=== PATIENT | female | born 1940 | race Caucasian/White ===

== ENCOUNTER → 2016-04-13 | Outpatient (CLI) | payer MEDICARE, OTHER ==
[2016-04-13 10:32] LABS: HEMATOCRIT 40.3 % (35.0-46.0); MEAN CELL VOLUME 100.2 FL (80.0-100.0); MEAN CORPUSCULAR HEMOGLOBIN 33.8 PG (27.0-34.0); MEAN CORPUSCULAR HGB CONC 33.7 % (32.0-36.0); PLATELET COUNT 234 TH/MM3 (150-450); RED BLOOD COUNT 4.02 MIL/MM3 (4.00-5.30); RED CELL DISTRIBUTION WIDTH 13.4 % (11.6-17.2); REVIEW FLAG FINAL; WHITE BLOOD COUNT 6.5 TH/MM3 (4.0-11.0)
[2016-04-13 11:10] LABS: ALKALINE PHOSPHATASE 106 U/L (45-117); ALT (GPT) 22 U/L (10-53); ANION GAP 7 MEQ/L (5-15); AST (GOT) 104 U/L (15-37); BLOOD UREA NITROGEN 9 MG/DL (7-18); CHLORIDE 101 MEQ/L (98-107); GLOMERULAR FILTRATION RATE 124 ML/MIN (>89); GLUCOSE,FASTING 86 MG/DL (74-99); HDL CHOLESTEROL 161.7 MG/DL (40.0-60.0); LDL CHOLESTEROL 90 MG/DL (0-99); LDL CHOLESTEROL DIRECT 96 MG/DL (0-99); PHENOBARBITAL 27.6 MCG/ML (15.0-40.0); POTASSIUM 4.9 MEQ/L (3.5-5.1); SODIUM (NA) 138 MEQ/L (136-145); TOTAL BILIRUBIN ADULT 0.3 MG/DL (0.2-1.0)
== END ==
LOC: PLAB 08:39
PROVIDERS: ATTEND Family Medicine
DX: R53.83 Other fatigue (principal); E78.2 Mixed hyperlipidemia; I10 Essential (primary) hypertension; Z79.899 Other long term (current) drug therapy
CPT/HCPCS: 36415; 80053; 80061; 80184; 83721; 84443; 85027

== ENCOUNTER → 2016-08-27 | Outpatient (CLI) | payer MEDICARE, OTHER ==
[2016-08-27 13:04] LABS: HEMATOCRIT 37.5 % (35.0-46.0); MEAN CORPUSCULAR HEMOGLOBIN 35.2 PG (27.0-34.0); MEAN CORPUSCULAR HGB CONC 34.2 % (32.0-36.0); PLATELET COUNT 238 TH/MM3 (150-450); RED BLOOD COUNT 3.64 MIL/MM3 (4.00-5.30); RED CELL DISTRIBUTION WIDTH 14.3 % (11.6-17.2); REVIEW FLAG FINAL; WHITE BLOOD COUNT 3.8 TH/MM3 (4.0-11.0)
[2016-08-27 13:34] LABS: ALKALINE PHOSPHATASE 108 U/L (45-117); ALT (GPT) 32 U/L (10-53); ANION GAP 7 MEQ/L (5-15); AST (GOT) 129 U/L (15-37); BICARBONATE 29.6 MEQ/L (21.0-32.0); BLOOD UREA NITROGEN 8 MG/DL (7-18); CHLORIDE 99 MEQ/L (98-107); GLOMERULAR FILTRATION RATE 106 ML/MIN (>89); GLUCOSE,FASTING 85 MG/DL (74-99); POTASSIUM 5.3 MEQ/L (3.5-5.1); SODIUM (NA) 136 MEQ/L (136-145); TOTAL BILIRUBIN ADULT 0.4 MG/DL (0.2-1.0)
[2016-08-27 13:47] LABS: HDL CHOLESTEROL 146.4 MG/DL (40.0-60.0); LDL CHOLESTEROL 145 MG/DL (0-99); LDL CHOLESTEROL DIRECT 143 MG/DL (0-99); PHENOBARBITAL 24.3 MCG/ML (15.0-40.0)
[2016-08-27 14:52] LABS: HEMOGLOBIN A1a 1.2 %; HEMOGLOBIN A1b 1.4 %; HEMOGLOBIN Ao 85.2 %; HEMOGLOBIN F 0.3 %; HEMOGLOBIN P3 3.7 %
== END ==
LOC: PLAB 08:51
PROVIDERS: ATTEND Internal Medicine Hematology
DX: E78.4 Other hyperlipidemia (principal); R73.01 Impaired fasting glucose; M32.9 Systemic lupus erythematosus, unspecified; R56.9 Unspecified convulsions; Z51.81 Encounter for therapeutic drug level monitoring; C50.519 Malignant neoplasm of lower-outer quadrant of unspecified female breast
CPT/HCPCS: 36415; 80053; 80061; 80184; 83036; 83721; 84443; 85027; 85652

== ENCOUNTER → 2017-01-05 | Outpatient (CLI) | payer MEDICARE, OTHER ==
[2017-01-05 13:37] LABS: ANION GAP 7 MEQ/L (5-15); AST (GOT) 112 U/L (15-37); BICARBONATE 29.1 MEQ/L (21.0-32.0); BLOOD UREA NITROGEN 11 MG/DL (7-18); CHLORIDE 100 MEQ/L (98-107); GLOMERULAR FILTRATION RATE 106 ML/MIN (>89); GLUCOSE,FASTING 78 MG/DL (74-99); POTASSIUM 4.2 MEQ/L (3.5-5.1); SODIUM (NA) 136 MEQ/L (136-145)
[2017-01-05 13:51] LABS: ALKALINE PHOSPHATASE 100 U/L (45-117); ALT (GPT) 25 U/L (10-53); HDL CHOLESTEROL 166.8 MG/DL (40.0-60.0); LDL CHOLESTEROL 104 MG/DL (0-99); LDL CHOLESTEROL DIRECT 120 MG/DL (0-99); PHENOBARBITAL 26.7 MCG/ML (15.0-40.0); TOTAL BILIRUBIN ADULT 0.4 MG/DL (0.2-1.0)
== END ==
LOC: PLAB 09:31
PROVIDERS: ATTEND Internal Medicine Hematology
DX: C50.519 Malignant neoplasm of lower-outer quadrant of unspecified female breast (principal); R53.83 Other fatigue; E78.2 Mixed hyperlipidemia; I10 Essential (primary) hypertension; M32.9 Systemic lupus erythematosus, unspecified; R56.9 Unspecified convulsions
CPT/HCPCS: 36415; 80053; 80061; 80184; 83721; 84443

== ENCOUNTER → 2017-04-07 | Outpatient (CLI) | payer MEDICARE, OTHER ==
[2017-04-07 13:45] LABS: HEMATOCRIT 40.1 % (35.0-46.0); HEMOGLOBIN 13.5 GM/DL (11.6-15.3); MEAN CELL VOLUME 103.5 FL (80.0-100.0); MEAN CORPUSCULAR HEMOGLOBIN 34.7 PG (27.0-34.0); MEAN CORPUSCULAR HGB CONC 33.6 % (32.0-36.0); MEAN PLATELET VOLUME 7.7 FL (7.0-11.0); PLATELET COUNT 254 TH/MM3 (150-450); RED BLOOD COUNT 3.88 MIL/MM3 (4.00-5.30); RED CELL DISTRIBUTION WIDTH 13.7 % (11.6-17.2)
[2017-04-07 13:54] LABS: ALBUMIN 3.4 GM/DL (3.4-5.0); AST (GOT) 101 U/L (15-37); BICARBONATE 31.2 MEQ/L (21.0-32.0); BLOOD UREA NITROGEN 11 MG/DL (7-18); CALCIUM 8.7 MG/DL (8.5-10.1); CHLORIDE 99 MEQ/L (98-107); CHOLESTEROL 281 MG/DL (120-200); GLOMERULAR FILTRATION RATE 121 ML/MIN (>89); GLUCOSE,FASTING 91 MG/DL (74-99); SODIUM (NA) 134 MEQ/L (136-145)
[2017-04-07 14:06] LABS: ALKALINE PHOSPHATASE 100 U/L (45-117); ALT (GPT) 24 U/L (10-53); CHOLESTEROL/ HDL RATIO 1.91 RATIO; HDL CHOLESTEROL 146.6 MG/DL (40.0-60.0); LDL CHOLESTEROL 126 MG/DL (0-99); LDL CHOLESTEROL DIRECT 115 MG/DL (0-99); TOTAL BILIRUBIN ADULT 0.3 MG/DL (0.2-1.0); TOTAL PROTEIN 7.1 GM/DL (6.4-8.2); TRIGLYCERIDES 43 MG/DL (42-150)
[2017-04-07 15:52] LABS: HEMOGLOBIN A1C 5.9 % (4.3-6.0)
== END ==
LOC: PLAB 09:27
PROVIDERS: ATTEND Family Medicine
DX: E78.5 Hyperlipidemia, unspecified (principal); M32.9 Systemic lupus erythematosus, unspecified; M19.90 Unspecified osteoarthritis, unspecified site; R56.9 Unspecified convulsions; I10 Essential (primary) hypertension
CPT/HCPCS: 36415; 80053; 80061; 80184; 83036; 83721; 85027

== ENCOUNTER → 2017-05-17 | Outpatient (CLI) | payer MEDICARE, OTHER ==
[2017-05-21 15:51] LABS: ENDOMYSIAL AB SCREEN ND (NEGATIVE); ENDOMYSIAL AB TITER ND (<1:5)
== END ==
LOC: PLAB 14:46
PROVIDERS: ATTEND Internal Medicine Gastroenterology
DX: K21.9 Gastro-esophageal reflux disease without esophagitis (principal); R13.10 Dysphagia, unspecified; R19.7 Diarrhea, unspecified; R15.9 Full incontinence of feces; Z12.11 Encounter for screening for malignant neoplasm of colon
CPT/HCPCS: 36415; 82784; 83516

== ENCOUNTER → 2017-08-25 | Outpatient (CLI) | payer MEDICARE, OTHER ==
[~2017-08-25] MED LIST: ANAS1TAB PO; ASPI81CH7 CHEW; ATOR10TA15 PO; AZOR10TA4 PO; BYST5TAB2 PO; CETI-14; ESTR0.62 VAGINAL; FOLI800T PO; MYCO250C PO; OCUVTAB PO; PHEN-414 PO; PLAQ200T PO; REST0.05 EACH EYE; TRIA0.022 TOPICAL; VENL75TA PO; WELC3.753 PO
[2017-08-25 10:49] LABS: AUTOMATED NEUTROPHIL # 1.5 TH/MM3 (1.8-7.7); BASOPHIL % 1.2 % (0.0-2.0); EOSINOPHIL # 0.1 TH/MM3 (0-0.4); EOSINOPHIL % 4.6 % (0.0-4.0); HEMATOCRIT 39.7 % (35.0-46.0); HEMOGLOBIN 13.4 GM/DL (11.6-15.3); LYMPH % 29.8 % (9.0-44.0); LYMPHOCYTE # 0.9 TH/MM3 (1.0-4.8); MEAN CELL VOLUME 104.6 FL (80.0-100.0); MEAN CORPUSCULAR HEMOGLOBIN 35.2 PG (27.0-34.0); MEAN CORPUSCULAR HGB CONC 33.7 % (32.0-36.0); MEAN PLATELET VOLUME 7.4 FL (7.0-11.0); MONO % 13.7 % (0.0-8.0); MONOCYTE # 0.4 TH/MM3 (0-0.9); NEUT % 50.7 % (16.0-70.0); PLATELET COUNT 212 TH/MM3 (150-450); RED CELL DISTRIBUTION WIDTH 13.8 % (11.6-17.2)
[2017-08-25 11:11] LABS: ALBUMIN 3.5 GM/DL (3.4-5.0); ALT (GPT) 24 U/L (10-53); AST (GOT) 128 U/L (15-37); BICARBONATE 29.9 MEQ/L (21.0-32.0); BLOOD UREA NITROGEN 10 MG/DL (7-18); CALCIUM 8.7 MG/DL (8.5-10.1); CHLORIDE 102 MEQ/L (98-107); CREATININE 0.52 MG/DL (0.50-1.00); GLOMERULAR FILTRATION RATE 115 ML/MIN (>89); GLUCOSE,FASTING 73 MG/DL (74-99); SODIUM (NA) 141 MEQ/L (136-145)
[2017-08-25 11:13] LABS: ALKALINE PHOSPHATASE 92 U/L (45-117); TOTAL BILIRUBIN ADULT 0.3 MG/DL (0.2-1.0); TOTAL PROTEIN 7.2 GM/DL (6.4-8.2)
[2017-08-25 11:26] LABS: CHOLESTEROL/ HDL RATIO 1.56 RATIO; HDL CHOLESTEROL 178.8 MG/DL (40.0-60.0)
== END ==
LOC: PLAB 07:59
PROVIDERS: ATTEND Internal Medicine Hematology
DX: E78.5 Hyperlipidemia, unspecified (principal); I10 Essential (primary) hypertension; C50.519 Malignant neoplasm of lower-outer quadrant of unspecified female breast; M32.9 Systemic lupus erythematosus, unspecified; R56.9 Unspecified convulsions; Z51.81 Encounter for therapeutic drug level monitoring
CPT/HCPCS: 36415; 80053; 80061; 80184; 83721; 85025; 85652

== ENCOUNTER 2017-08-28 09:06 | Emergency (ER) | payer MEDICARE, OTHER ==
[~2017-08-28] VITALS: Ht 157.5 cm; Wt 67.8 kg
[2017-08-28 09:11] VITALS: BP 163/87; PULSE 65; RESP 16; TEMP 98.6; O2SAT 96
[2017-08-28 09:26] VITALS: BP 163/87; PULSE 65; RESP 16; TEMP 98.6; O2SAT 96
[2017-08-28] MEDS ORDERED: AZOR10TA4 PO (09:36)
[2017-08-28] MEDS ORDERED: BYST5TAB2 PO (09:36)
[2017-08-28] MEDS ORDERED: REST0.05 EACH EYE (09:36)
[2017-08-28] MEDS ORDERED: ASPI81CH7 CHEW (09:36)
[2017-08-28] MEDS ORDERED: MYCO250C PO (09:36)
[2017-08-28] MEDS ORDERED: ESTR0.62 VAGINAL (09:36)
[2017-08-28] MEDS ORDERED: TRIA0.022 TOPICAL (09:36)
[2017-08-28] MEDS ORDERED: PLAQ200T PO (09:36)
[2017-08-28] MEDS ORDERED: VENL75TA PO (09:36)
[2017-08-28] MEDS ORDERED: ATOR10TA15 PO (09:36)
[2017-08-28] MEDS ORDERED: PHEN-414 PO (09:36)
[2017-08-28] MEDS ORDERED: WELC3.753 PO (09:36)
[2017-08-28] MEDS ORDERED: FOLI800T PO (09:36)
[2017-08-28] MEDS ORDERED: OCUVTAB PO (09:36)
[2017-08-28] MEDS ORDERED: CETI-14 (09:36)
[2017-08-28] MEDS ORDERED: ANAS1TAB PO (09:36)
--- NOTE | 2017-08-28 09:45 | PD ---
HPI Chief Complaint: Head Injury Time Seen by Provider: 09:20 Travel History International Travel<30 days: Yes Contact w/Intl Traveler<30days: Yes Name of Country Traveled to: [place] Traveled to known affect area: No History of Present Illness HPI 77-year-old female presents to the emergency department for evaluation of head injury that occurred on Wednesday, 3 days ago. Patient states she was in the kitchen and hit her head against the cabinet. She states that she does not remember the injury. She denies any other injury. She denies falling over. Patient reports hematoma to the left scalp. Patient does report history of brain aneurysm in 1982 and had a clip placed. She has had no other issues with her aneurysm since then. Patient also reports history of lung cancer and breast cancer, not currently in radiation therapy or chemotherapy. 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 She denies any back pain. No chest pain. No shortness of breath. No abdominal pain. No nausea, vomiting, diarrhea. Patient does state that she took hydrocodone last night to help her sleep. She states she has been more sleepy since the injury. She currently rates the pain 4/10 to the left head, aching and throbbing, without radiation. Moderate severity. PFSH Past Medical History Hx Anticoagulant Therapy: No Cancer: Yes (LUNG AND BREAST) High Cholesterol: Yes Diabetes: No Patient Takes Glucophage: No Diminished Hearing: No Hypertension: Yes Medical other: Yes (LUPUS) Tetanus Vaccination: Unknown ?: Not Past Surgical History Cholecystectomy: Yes Neurologic Surgery: Yes (BRAIN ANEURYSM) Tonsillectomy: Yes Other Surgery: Yes (LUNG SX DUE TO CA) Social History Alcohol Use: Yes (DAILY) Tobacco Use: No Substance Use: No Allergies-Medications (Allergen,Severity, Reaction): Coded Allergies: MRI PRECAUTION (Unverified Adverse Reaction, Unknown, PT HAS ANUERYSM CLIPS, 05/19/04) Uncoded Allergies: MRI PRECAUTION (Adverse Reaction, Unknown, ANEURYSM CLIPS, 12/21/02) Reported Meds & Prescriptions Reported Meds & Active Scripts Active Reported Restasis Opth (Cyclosporine Opth) 0.05% Emul 1 Drop EACH EYE BID Premarin Vaginal (Estrogens, Conjugated Vaginal) 0.625 Mg/Gm Cream 1 Gm VAGINAL DIRECTED Triamcinolone Topical 0.025 % Oint 1 Applic TOPICAL BID Zyrtec (Cetirizine HCl) 10 Mg Tab.rapdis Welchol (Colesevelam HCl) 3.75 Gm Pkt 3.75 Gm PO DAILY Phenobarbital 32.4 Mg Tab 32.4 Mg PO DIRECTED Effexor (Venlafaxine HCl) 75 Mg Tab 75 Mg PO DAILY Anastrozole 1 Mg Tab 1 Mg PO DAILY Plaquenil (Hydroxychloroquine Sulfate) 200 Mg Tab 200 Mg PO DAILY Take with food Pooja (Amlodipine-Olmesartan) 10-40 Mg Tab 1 Tab PO DAILY Atorvastatin (Atorvastatin Calcium) 10 Mg Tab 10 Mg PO HS Bystolic (Nebivolol) 5 Mg Tab 5 Mg PO DAILY Aspirin Children's (Aspirin) 81 Mg Chew 81 Mg CHEW DAILY Folic Acid 0.8 Mg Tab 800 Mcg PO DAILY Ocuvite (Multiple Vitamins W/ Minerals) 1 Tab 1 Tab PO DAILY Mycophenolate (Mycophenolate Mofetil) 250 Mg Cap 500 Mg PO QID Review of Systems Except as stated in HPI: all other systems reviewed are Neg Physical Exam Narrative GENERAL: Well-nourished, well-developed female patient, afebrile. SKIN: Focused skin assessment warm/dry. Patient has large hematoma to the left scalp. No laceration noted. HEAD: Normocephalic. Atraumatic. ENT: Mucosa pink and moist. No erythema or exudates. No uvular edema. No uvular , palatal, or tonsillar deviation. Airway patent. Nasal turbinates appear normal without nasal blood, purulent drainage or septal hematoma. Bilateral tympanic membranes clear without erythema or perforation. EYES: No scleral icterus. No injection or drainage. NECK: Supple, trachea midline. No JVD or lymphadenopathy. CARDIOVASCULAR: Regular rate and rhythm without murmurs, gallops, or rubs. RESPIRATORY: Breath sounds equal bilaterally. No accessory muscle use. Lung sounds are clear to auscultation. GASTROINTESTINAL: Abdomen soft, non-tender, nondistended. MUSCULOSKELETAL: No cyanosis, or edema. BACK: Nontender without obvious deformity. No CVA tenderness. Data Data Last Documented VS Vital Signs Date Time Temp Pulse Resp B/P (MAP) Pulse Ox O2 Delivery O2 Flow Rate FiO2 08/28/17 10:50 65 16 166/74 (104) 98 Room Air 08/28/17 09:[address] Brain W/O Iv Contrast(Rout) (08/28/17 ) Ct Cerv Spine W/O Contrast (08/28/17 ) Ice/Cold Pack (08/28/17 09:35) MDM Medical Decision Making Medical Screen Exam Complete: Yes Emergency Medical Condition: Yes Medical Record Reviewed: Yes Interpretation(s) Last Impressions Head CT 08/28/17 0000 Signed Impressions: CONCLUSION: 1. Unremarkable CT scan of the brain. No acute intracranial pathology. 2. Prominent focal cephalohematoma of the external soft tissues along the post erior left cerebral vertex measuring 3 cm x 2.7 cm. The underlying calvarium is grossly intact. Cervical Spine CT 08/28/17 0000 Signed Impressions: CONCLUSION: 1. No acute bony fracture. 2. Moderate diffuse primary bony degenerative changes, disc degeneration and d isc space narrowing throughout the cervical spine. 3. Mild anterior spondylolisthesis of C5 over C6 by 2 mm. 4. Broad-based bulging with disc osteophyte complex at C4-5 and C6-7. 5. Bilateral facet arthritis. Differential Diagnosis Closed head injury versus hematoma versus intracranial hemorrhage versus skull fracture Narrative Course 77-year-old female presents to the emergency department for evaluation after a head injury that occurred on Wednesday, 3 days ago. She does have a large hematoma to the left scalp and does not remember the accident. CT of the brain and cervical spine are ordered and pending. CT of the brain shows Unremarkable CT scan of the brain. No acute intracranial pathology; Prominent focal cephalohematoma of the external soft tissues along the posterior left cerebral vertex measuring 3 cm x 2.7 cm. The underlying calvarium is grossly intact. CT of the cervical spine shows no acute bony fracture; moderate diffuse primary bony degenerative changes, disc degeneration and disc space narrowing throughout the cervical spine; Mild anterior spondylolisthesis of C5 over C6 by 2 mm; Broad-based bulging with disc osteophyte complex at C4-5 and C6-7; Bilateral facet arthritis. CT scans are reassuring. Patient is instructed ice, follow-up with her primary care physician. She verbalizes agreement. The patient was discharged in stable condition with instructions, including return instructions and follow up instructions. Diagnosis Primary Impression: Closed head injury Qualified Codes: S09.90XA - Unspecified injury of head, initial encounter Additional Impression: Cephalhematoma Referrals: Primary Care Physician call for appointment Patient Instructions: General Instructions, Head Injury (ED), Hematoma (ED) Additional Instructions: Ice for 20 minutes 4-5 times daily. Follow-up with a primary care physician. Return to the emergency department for any acute worsening of symptoms. Med/Other Pt SpecificInfo: No Change to Meds Disposition: 01 DISCHARGE HOME Condition: Stable Milvia Thao August 28, 2017 09:45
[2017-08-28 10:50] VITALS: BP 166/74; PULSE 65; RESP 16; O2SAT 98
--- NOTE | 2017-08-28 11:03 | RADRPT ---
EXAM DATE: 08/28/2017 10:58 AM EDT AGE/SEX: 77 years / Female INDICATIONS: Trauma, hit head on cabinet three days ago. CLINICAL DATA: This is the patient's initial encounter. Patient reports that signs and symptoms have been present for 3 days and indicates a pain score of 4/10. MEDICAL/SURGICAL HISTORY: Carcinoma, breast. Lupus. Carcinoma, lung. . brain aneurysm surgery, bigg ng surgery RADIATION DOSE: 62.20 CTDI (mGy) COMPARISON: No prior [facility] exams available for comparison. TECHNIQUE: CT of the head without contrast. Using automated exposure control and adjustment of the mA and/or kV according to patient size, radiation dose was kept as low as reasonably achievable to ob tain optimal diagnostic quality images. FINDINGS: Cerebrum: The ventricles are normal for age. No evidence of midline shift, mass lesion, hemorrhage or acute infarction. No extraaxial fluid collections are seen. There is evidence of a previous right -sided craniotomy for previous brain surgery. Posterior Fossa: The cerebellum and brainstem are intact. The 4th ventricle is midline. The cerebe llopontine angle is unremarkable. Extracranial: The visualized portion of the orbits is intact. There is good alignment of the right-s ided craniotomy flap. There is a cephalohematoma involving the soft tissues along the posterior left vertex measuring 3 cm x 2.7 cm. Skull: The calvaria is intact. No evidence of skull fracture. CONCLUSION: 1. Unremarkable CT scan of the brain. No acute intracranial pathology. 2. Prominent focal cephalohematoma of the external soft tissues along the posterior left cerebral ve rtex measuring 3 cm x 2.7 cm. The underlying calvarium is grossly intact. Electronically signed by: Vazquez Wan MD 08/28/2017 11:02 AM EDT
--- NOTE | 2017-08-28 11:07 | RADRPT ---
EXAM DATE: 08/28/2017 11:00 AM EDT AGE/SEX: 77 years / Female INDICATIONS: Trauma, hit head on cabinet three days ago. CLINICAL DATA: This is the patient's initial encounter. Patient reports that signs and symptoms have been present for 3 days and indicates a pain score of 4/10. MEDICAL/SURGICAL HISTORY: Aneurysm, intracranial. Lupus. Carcinoma, lung. . aneurysm surgery, lung surgery RADIATION DOSE: 25.96 CTDI (mGy) COMPARISON: No prior [facility] exams available for comparison. TECHNIQUE: Contiguous axial images were obtained using helical multirow detector technique. The vol umetric data was post-processed with multiplanar reconstruction in oblique axial, sagittal, and coron al planes. Using automated exposure control and adjustment of the mA and/or kV according to patient s ize, radiation dose was kept as low as reasonably achievable to obtain optimal diagnostic quality prince ges. FINDINGS: Vertebrae: No acute bony fractures demonstrated. There is moderate diffuse primary bony degenerative changes, disc degeneration disc space narrowing throughout the cervical spine. There is some minimal anterior subluxation of C5 over C6 by approximately 2 mm. No focal soft tissue swelling is seen. C2-3: The bony spinal canal is normal in size. No evidence of disc bulge or herniation. The neural foramina are bilaterally patent. Bilateral facet arthritis. C3-4: The bony spinal canal is normal in size. No evidence of disc bulge or herniation. The neural foramina are bilaterally patent. Bilateral facet arthritis, right greater than left. C4-5: Broad-based bulging with disc osteophyte complex. Mild narrowing of the right neural foramina. The left neural foramina is patent. Bilateral facet arthritis. C5-6: The bony spinal canal is normal in size. No evidence of disc bulge or herniation. The neural foramina are bilaterally patent. Bilateral facet arthritis. C6-7: Mild broad-based bulging with disc osteophyte complex. The neural foramina are patent bilatera lly. Mild bilateral facet arthritis. C7-T1: The bony spinal canal is normal in size. No evidence of disc bulge or herniation. The neura l foramina are bilaterally patent. Mild bilateral facet arthritis. CONCLUSION: 1. No acute bony fracture. 2. Moderate diffuse primary bony degenerative changes, disc degeneration and disc space narrowing th roughout the cervical spine. 3. Mild anterior spondylolisthesis of C5 over C6 by 2 mm. 4. Broad-based bulging with disc osteophyte complex at C4-5 and C6-7. 5. Bilateral facet arthritis. Electronically signed by: Vazquez Wan MD 08/28/2017 11:06 AM EDT
== END 2017-08-28 11:33 | disposition home or self-care (01) ==
LOC: PHED 09:06
DX: S06.2X9A Diffuse traumatic brain injury with loss of consciousness of unspecified duration, initial encounter (principal); W22.8XXA Striking against or struck by other objects, initial encounter; G89.29 Other chronic pain; M54.2 Cervicalgia; E78.00 Pure hypercholesterolemia, unspecified; I10 Essential (primary) hypertension; M32.9 Systemic lupus erythematosus, unspecified; Z85.118 Personal history of other malignant neoplasm of bronchus and lung; Z85.3 Personal history of malignant neoplasm of breast
CPT/HCPCS: 70450; 72125; 99283

== ENCOUNTER 2017-08-30 14:20 | Emergency (ER) | payer MEDICARE, OTHER ==
[~2017-08-30] VITALS: Ht 157.5 cm; Wt 69.0 kg
[2017-08-30 14:27] VITALS: BP 164/68; PULSE 72; RESP 16; TEMP 98.4; O2SAT 96
--- NOTE | 2017-08-30 15:35 | RADRPT ---
EXAM DATE: 08/30/2017 3:29 PM EDT AGE/SEX: 77 years / Female INDICATIONS: Fell three days ago. Left sided injury. CLINICAL DATA: This is the patient's sequela encounter. Patient reports that signs and symptoms have been present for 3 days and indicates a pain score of 4/10. MEDICAL/SURGICAL HISTORY: Carcinoma, breast. Carcinoma, lung. Aneurysm, intracranial. Hypertensi on. Lupus. Tonsillectomy. Cholecystectomy. RADIATION DOSE: 52.74 CTDI (mGy) COMPARISON: [facility], CT BRAIN W/O CONTRAST, 08/28/2017. . TECHNIQUE: CT of the head without contrast. Using automated exposure control and adjustment of the mA and/or kV according to patient size, radiation dose was kept as low as reasonably achievable to ob tain optimal diagnostic quality images. FINDINGS: Cerebrum: The ventricles are normal for age. No evidence of midline shift, mass lesion, hemorrhage or acute infarction. No extraaxial fluid collections are seen. Posterior Fossa: The cerebellum and brainstem are intact. The 4th ventricle is midline. The cerebe llopontine angle is unremarkable. Extracranial: The visualized portion of the orbits is intact. Skull: Previous right-sided craniotomy. 4.2 cm left parietal scalp hematoma. CONCLUSION: 1. No acute intracranial abnormalities. Previous right craniotomy with some encephalomalacia in the right MCA distribution as well as a small metallic artifact in the area of the sylvian fissure. 2. 4.2 cm left parietal scalp hematoma. Electronically signed by: Jonh Augustin MD 08/30/2017 3:34 PM EDT
--- NOTE | 2017-08-30 15:52 | PD ---
HPI Chief Complaint: Skin Problem Time Seen by Provider: 15:10 Travel History International Travel<30 days: No Contact w/Intl Traveler<30days: No Traveled to known affect area: No History of Present Illness HPI This is a 77-year-old female here for reevaluation of a head injury sustained 6 days prior. She was evaluated in the ED 2 days ago and had a negative CT the brain at that time. She was instructed to return if she developed worsening headache which prompted her visit today. She reports a generalized aching type headache which was severe last night and has since improved. She had a large parietal scalp hematoma at that time. Today she noticed bruising to the left side of her face and reports a persistent headache. No visual changes, nausea, vomiting, weakness of the extremities. Symptom severity is moderate. No aggravating or alleviating factors. PFSH Past Medical History Hx Anticoagulant Therapy: No Cancer: Yes (LUNG AND BREAST) High Cholesterol: Yes Diabetes: No Diminished Hearing: No Hypertension: Yes Past Surgical History Cholecystectomy: Yes Neurologic Surgery: Yes (BRAIN ANEURYSM) Tonsillectomy: Yes Other Surgery: Yes (LUNG SX DUE TO CA) Social History Alcohol Use: Yes (DAILY) Tobacco Use: No Substance Use: No Allergies-Medications (Allergen,Severity, Reaction): Coded Allergies: MRI PRECAUTION (Unverified Adverse Reaction, Unknown, PT HAS ANUERYSM CLIPS, 08/30/17) Uncoded Allergies: MRI PRECAUTION (Adverse Reaction, Unknown, ANEURYSM CLIPS, 12/21/02) Reported Meds & Prescriptions Reported Meds & Active Scripts Active Reported Restasis Opth (Cyclosporine Opth) 0.05% Emul 1 Drop EACH EYE BID Premarin Vaginal (Estrogens, Conjugated Vaginal) 0.625 Mg/Gm Cream 1 Gm VAGINAL DIRECTED Triamcinolone Topical 0.025 % Oint 1 Applic TOPICAL BID Zyrtec (Cetirizine HCl) 10 Mg Tab.rapdis Welchol (Colesevelam HCl) 3.75 Gm Pkt 3.75 Gm PO DAILY Phenobarbital 32.4 Mg Tab 32.4 Mg PO DIRECTED Effexor (Venlafaxine HCl) 75 Mg Tab 75 Mg PO DAILY Anastrozole 1 Mg Tab 1 Mg PO DAILY Plaquenil (Hydroxychloroquine Sulfate) 200 Mg Tab 200 Mg PO DAILY Take with food Pooja (Amlodipine-Olmesartan) 10-40 Mg Tab 1 Tab PO DAILY Atorvastatin (Atorvastatin Calcium) 10 Mg Tab 10 Mg PO HS Bystolic (Nebivolol) 5 Mg Tab 5 Mg PO DAILY Aspirin Children's (Aspirin) 81 Mg Chew 81 Mg CHEW DAILY Folic Acid 0.8 Mg Tab 800 Mcg PO DAILY Ocuvite (Multiple Vitamins W/ Minerals) 1 Tab 1 Tab PO DAILY Mycophenolate (Mycophenolate Mofetil) 250 Mg Cap 500 Mg PO QID Review of Systems Except as stated in HPI: all other systems reviewed are Neg General / Constitutional: No: Fever Eyes: No: Visual changes HENT: Positive: Headaches Cardiovascular: No: Chest Pain or Discomfort Respiratory: No: Shortness of Breath Gastrointestinal: No: Abdominal Pain Genitourinary: No: Dysuria Physical Exam Narrative GENERAL: Alert and well-appearing 77-year-old female SKIN: Warm and dry. Resolving ecchymosis noted to the left cheek and posterior aspect of the ear. HEAD: Normocephalic. Notable hematoma to the left parietal scalp. EYES: No scleral icterus. No injection or drainage. NECK: Supple, trachea midline. No cervical midline tenderness. She can freely move the neck. CARDIOVASCULAR: Regular rate and rhythm without murmurs, gallops, or rubs. RESPIRATORY: Breath sounds equal bilaterally. No accessory muscle use. GASTROINTESTINAL: Abdomen soft, non-tender, nondistended. MUSCULOSKELETAL: No cyanosis, or edema. BACK: Nontender without obvious deformity. No CVA tenderness. Data Data Last Documented VS Vital Signs Date Time Temp Pulse Resp B/P (MAP) Pulse Ox O2 Delivery O2 Flow Rate FiO2 08/30/17 14:27 98.4 72 16 164/68 (100) [address] Brain W/O Iv Contrast(Rout) (08/30/17 ) [facility] Medical Decision Making Medical Screen Exam Complete: Yes Emergency Medical Condition: Yes Differential Diagnosis ICH, skull fracture, post concussion syndrome Narrative Course 77-year-old female here with reported worsening headache after a fall 2 days ago. She has a normal neurologic exam. She reports the headache has improved since this morning. CT reveal no intracranial abnormality. She has a 4.2 cm left parietal scalp hematoma present unchanged from last visit. She is stable and ready for discharge Diagnosis Primary Impression: Head injury Qualified Codes: S09.90XA - Unspecified injury of head, initial encounter Referrals: Primary Care Physician Additional Instructions: Tylenol as needed for pain. Follow-up with her primary doctor for recheck. Return to emergency department if you develop new or worsening symptoms as discussed. Disposition: 01 DISCHARGE HOME Condition: Stable Asya Sykes August 30, 2017 15:52
== END 2017-08-30 15:59 | disposition home or self-care (01) ==
LOC: PHEFT 14:20
DX: S00.03XD Contusion of scalp, subsequent encounter (principal); W19.XXXD Unspecified fall, subsequent encounter; R51 Headache; E78.00 Pure hypercholesterolemia, unspecified; Z85.3 Personal history of malignant neoplasm of breast; Z85.118 Personal history of other malignant neoplasm of bronchus and lung; I10 Essential (primary) hypertension
CPT/HCPCS: 70450; 99283